=== PATIENT | female | born 1970 | race Caucasian/White ===

== ENCOUNTER 2024-11-15 17:35 | Emergency (ER) | payer MEDICAID, SELFPAY ==
[2024-11-15 17:41] VITALS: BP 115/85; PULSE 96; TEMP 37.3; O2SAT 100; BMI 27.5
--- NOTE | 2024-11-15 17:50 | ED_ITS ---
HPI - URI/Sore Throat General Chief Complaint: Upper Respiratory Infection Stated Complaint: POSS FLU Time Seen by Provider: 11/15/24 17:36 Source: patient History of Present Illness HPI Narrative: Patient is a 54-year-old female who presents to the emergency department requesting flu testing and a chest x-ray for cough and congestion that began yesterday. She reports a fever of 103.0 Fahrenheit yesterday, no medications taken today for her symptoms. She reports green sputum with coughing. She is a half a pack per day cigarette smoker. No vomiting or diarrhea. She reports body aches, nasal congestion. She has not taken any medications prior to arriva l. She states she was reading online and is concerned that she may have influenza A. Related Data Previous Rx's ?Medication ?Instructions ?Recorded jcbyeegmczfkrqr-lnyriszggmgewfq-MP 10 ml PO Q6H PRN cold symptoms 11/15/24 2 mg-30 mg-10 mg/5 mL oral syrup #200 mL (Bromfed DM) methylprednisolone 4 mg tablets in See Rx Instructions .Route 11/15/24 a dose pack (Medrol (Jeremi)) .COMPLEX #21 ea ondansetron 4 mg disintegrating 4 mg PO Q6H PRN nausea and 11/15/24 tablet vomiting #12 tabs Allergies Allergy/AdvReac Type Severity Reaction Status Date / Time penicillin G AdvReac Severe Anaphylaxis Verified 11/15/24 17:41 Review of Systems ROS Constitutional Reports: fever and chills Ears, nose, mouth, and throat Reports: throat pain, nasal discharge and nasal congestion Cardiovascular Denies: chest pain Respiratory Reports: cough, change in phlegm color and chest congestion; Denies: shortness of breath Gastrointestinal Denies: nausea, vomiting or diarrhea Integumentary/Breast Denies: rash Neurological Denies: numbness in extremities or weakness in extremities Hematologic/Lymphatic Denies: easy bruising or easy bleeding PFSH PFSH Social History Little interest or pleasure in doing things: not at all Feeling down, depressed, or hopeless: not at all Exam Narrative Exam Narrative: Gen.: Awake, alert, in no distress Head: Normocephalic, atraumatic ENT: Moist mucous membranes, bilateral TMs clear, no pharyngeal erythema Respiratory: No respiratory distress, lungs clear bilaterally, dry cough noted Cardio: Regular rate and rhythm Extremities: Moves extremities equally Psych: Normal mood and affect Neuro: No focal neuro deficit Skin: Warm, dry, intact Constitutional Vital Signs, click to edit/add: Last Vital Signs Temp 99.1 F 11/15/24 17:41 Pulse 101 H 11/15/24 19:02 Resp 16 11/15/24 19:02 BP 119/78 11/15/24 19:02 Pulse Ox 99 11/15/24 19:02 O2 Del Method Room Air 11/15/24 19:02 Course Vital Signs Vital signs: Vital Signs Temperature 99.1 F 11/15/24 17:41 Pulse Rate 96 H 11/15/24 17:41 Respiratory Rate 18 11/15/24 17:41 Blood Pressure 115/85 11/15/24 17:41 Pulse Oximetry 100 11/15/24 17:41 Oxygen Delivery Method Room Air 11/15/24 17:41 Temperature 99.1 F 11/15/24 17:41 Pulse Rate 101 H 11/15/24 19:02 Respiratory Rate 16 11/15/24 19:02 Blood Pressure 119/78 11/15/24 19:02 Pulse Oximetry 99 11/15/24 19:02 Oxygen Delivery Method Room Air 11/15/24 19:02 MDM - URI/Sore Throat MDM Narrative Medical decision making narrative: Patient is negative for COVID, influenza and chest x-ray shows no evidence of acute cardiopulmonary changes. Patient treated with Decadron in the ER and discharged home on Bromfed-DM, Zofran, Medrol Dosepak. Follow-up with PCP and return to the emergency department if symptoms change or worsen SUPERVISED APC VISIT, PHYSICIAN ATTESTATION: Based on the medical record the care appears appropriate. ? Medical Records Attestation: I reviewed the patient's medical records. Lab Data Attestation: I reviewed the patient's lab results. Labs: Lab Results 11/15/24 Range/Units 17:50 Influenza Type A Ag Negative Influenza Type B Ag Negative SARS-CoV-2 Ag (CV2AG) Negative (NEGATIVE) Imaging Data Chest x-ray: Attestation: I have reviewed the pertinent imaging results. Discharge Plan Discharge Chief Complaint: Upper Respiratory Infection Clinical Impression: Upper respiratory infection Patient Disposition: Home, Self-Care Time of Disposition Decision: 19:11 Condition: Good Prescriptions / Home Meds: New methylprednisolone [Medrol (Jeremi)] 4 mg tablets,dose pack See Rx Instructions .ROUTE .COMPLEX Qty: 21 0RF Rx Instructions: Taper as directed fwnybclaxrphzfn-itbvjfytu-FO [Bromfed DM] 2-30-10 mg/5 mL syrup 10 ml PO Q6H PRN (Reason: cold symptoms) Qty: 200 0RF ondansetron 4 mg tablet,disintegrating 4 mg PO Q6H PRN (Reason: nausea and vomiting) Qty: 12 0RF Print Language: Tamazight Instructions: Upper Respiratory Infection (ED) Referrals: Physician,Non-Staff, MD [Primary Care Provider] - 1 week
[2024-11-15 17:53] VITALS: O2SAT 97
[2024-11-15] MEDS: DEXAMETHASONE SOD PHOS 10 MG/ML VIAL PO (18:01)
[2024-11-15 18:18] LABS: Influenza Virus A Antigen Negative; Influenza Virus B Antigen Negative; Internal Control Within Normal Limits; SARS-CoV-2 Ag NEGATIVE (NEGATIVE)
[2024-11-15 19:02] VITALS: BP 119/78; PULSE 101; O2SAT 99
== END 2024-11-15 19:23 | disposition home or self-care (01) ==
PROVIDERS: Physician Assistant; Emergency Provider Emergency Medicine
DX: J06.9 Acute upper respiratory infection, unspecified (principal); F17.210 Nicotine dependence, cigarettes, uncomplicated
CPT/HCPCS: 71045; 87804; 87811; 99284; J1100

== ENCOUNTER 2025-04-18 15:27 | Emergency (ER) | payer SELFPAY ==
[2025-04-18] VITALS (10 sets, daily range): BP systolic 140–165; BP diastolic 90–98; PULSE 78–88; TEMP 36.8; O2SAT 96–100; BMI 27.5
--- NOTE | 2025-04-18 15:41 | ECG_ITS ---
[facility] Test Date: 2025-04-18 Pat Name: NEREYDA LAZARO Department: Room: - Gender: Female [employer]: : 1970 Requested By: [id number] Order Number: [id number] Reading MD: SANGITA JONES M.D. Measurements Intervals [place] Rate: 85 P: 53 MT: 140 QRS: 49 QRSD: 96 T: 64 QT: 354 QTc: 396 Interpretive Statements 1100 Sinus rhythm 9110 normal ECG No previous ECG available for comparison Electronically Signed On 04-20-2025 7:32:02 EDT by SANGITA JONES M.D.
--- NOTE | 2025-04-18 15:41 | XR_ITS ---
The [address] [address] Patient Name: NEREYDA LAZARO MRN: [id number] date: 1970 Sex: F Assigned Patient Location: ER Current Patient Location: ER Accession/Order Number: [id number] Exam Date: 04/18/2025 16:15 Report Date: 04/18/2025 16:18 At the request of: LATRELL RAIN MD Procedure: XR chest 1V XR chest 1V 04/18/2025 4:01 PM SIGNS AND SYMPTOMS: Hypertension, dizziness PROTOCOL: Frontal radiograph of the chest COMPARISON: 11/15/2024 FINDINGS: The trachea is midline. The heart and mediastinal structures are within normal limits. The lung parenchyma is clear. The bony thorax is intact. Postoperative changes are noted in the right shoulder. XR/XR chest 1V IMPRESSION: No acute cardiopulmonary pathology. Impression dictated by: Moe Tellez M.D. 04/18/2025 4:18 PM Dictation Location: [place] [address] Electronically authenticated by: [id number] Y Date: 04/18/2025 16:18
--- NOTE | 2025-04-18 15:41 | ED.GENADUL1 ---
HPI HPI - General Adult General Chief complaint: Recheck/Abnormal Lab/Rx Stated complaint: HIGH BLOOD PRESSURE DIZZY Time Seen by Provider: 04/18/25 15:31 Source: patient Mode of arrival: Wheelchair History of Present Illness HPI narrative: 54-year-old female presented to the emergency department for chief complaint of elevated blood pressure. She has a history of hypertension but took herself off of her blood pressure medicine and cholesterol medicine about 3 years ago. She has not been to a physician since then. Recently she has been irritable and has had a headache and so she came in to get checked and her blood pressure was found to be elevated at triage. Related Data Previous Rx's ?Medication ?Instructions ?Recorded metoprolol tartrate 25 mg tablet 25 mg PO BID #60 tabs 04/18/25 Allergies Allergy/AdvReac Type Severity Reaction Status Date / Time penicillin G AdvReac Severe Anaphylaxis Verified 11/15/24 17:41 Review of Systems ROS Narrative A ten point review of systems is negative except as noted above. [facility] Medical History (Updated 04/18/25 @ 16:59 by Brown Shaikh MD) TIA (transient ischemic attack) ?G45.9 - Transient cerebral ischemic attack, unspecified (ICD-10) Social History Little interest or pleasure in doing things: not at all Feeling down, depressed, or hopeless: not at all Exam Narrative Exam Narrative: Nurses note and vital signs reviewed and patient is not hypoxic. General: The patient appears well and in no apparent distress. Patient is resting comfortably on cart. Skin: Warm, dry, no pallor noted. There is no rash noted. Head: Normocephalic, atraumatic Eye: Normal conjunctiva, no drainage Ears, Nose, Mouth, and Throat: oral mucosa is moist. Nares patent. Cardiovascular: Regular Rate and Rhythm Respiratory: Patient is in no distress, no accessory muscle use, lungs are clear to auscultation, no wheezing, rales or rhonchi Back: non-tender GI: Soft and nontender Musculoskeletal: The patient has no evidence of calf tenderness, no pitting edema, symmetrical pulses noted bilaterally Neurological: A&O, normal speech Psychiatric: Cooperative Constitutional Vital Signs, click to edit/add: Last Vital Signs Temp 98.3 F 04/18/25 15:32 Pulse 78 04/18/25 16:30 Resp 15 04/18/25 16:30 BP 140/90 04/18/25 16:30 Pulse Ox 96 04/18/25 15:50 O2 Del Method Room Air 04/18/25 15:32 Course Vital Signs Vital signs: Vital Signs Temperature 98.3 F 04/18/25 15:32 Pulse Rate 83 04/18/25 15:32 Respiratory Rate 18 04/18/25 15:32 Blood Pressure 165/98 H 04/18/25 15:32 Pulse Oximetry 99 04/18/25 15:32 Oxygen Delivery Method Room Air 04/18/25 15:32 Temperature 98.3 F 04/18/25 15:32 Pulse Rate 78 04/18/25 16:30 Respiratory Rate 15 04/18/25 16:30 Blood Pressure 140/90 04/18/25 16:30 Pulse Oximetry 96 04/18/25 15:50 Oxygen Delivery Method Room Air 04/18/25 15:32 Medical Decision Making MDM Narrative Medical decision making narrative: The patient's blood pressure is mildly elevated. She has been on metoprolol in the past and was prescribed same. Blood work and EKG showed no acute findings and she is able to be discharged home. Treatment diagnosis and follow-up were discussed with the patient. Differential Diagnosis Differential Diagnosis: Hypertension, renal failure Lab Data Lab results reviewed: Yes I reviewed the patient's lab results Labs: Lab Results 04/18/25 04/18/25 Range/Units 15:34 15:50 WBC 10.1 (4.0-11.0) 10^3/uL RBC 5.18 (4.20-5.40) 10^6/uL Hgb 15.4 (12.0-16.0) g/dL Hct 46.3 (36.0-48.0) % MCV 89.4 (81.0-99.0) fL MCH 29.7 (26.7-34.0) pg MCHC 33.3 (29.9-35.2) g/dL RDW 13.2 (11.0-15.0) % Plt Count 307 (150-450) 10^3/uL MPV 10.8 (9.5-13.5) fL Neut % (Auto) 73.2 (43.0-75.0) % Lymph % (Auto) 20.6 (20.5-60.0) % [facility] % (Auto) 4.3 (1.7-12.0) % Eos % (Auto) 1.1 (0.9-7.0) % Baso % (Auto) 0.5 (0.2-2.0) % Neut # (Auto) 7.4 H (1.4-6.5) 10^3/uL Lymph # (Auto) 2.1 (1.2-3.8) 10^3/uL [facility] # (Auto) 0.4 (0.3-0.8) 10^3/uL Eos # (Auto) 0.1 (0.0-0.7) 10^3/uL Baso # (Auto) 0.1 (0.0-0.1) 10^3/uL Abs Immat Gran (auto) 0.03 (0.00-0.03) 10^3/uL Imm/Tot Granulo (auto) 0.3 (0.0-0.5) % Sodium 139 (136-145) mmol/L Potassium 3.7 (3.5-5.1) mmol/L Chloride 105 (98-107) mmol/L Carbon Dioxide 24.4 (21.0-32.0) mmol/L Anion Gap 13.3 BUN 13.0 (7.0-18.0) mg/dL Creatinine 0.79 (0.55-1.02) mg/dL Est GFR ( Amer) >60 (>=60 mL/min/1.73m^2) Est GFR (Non-Af Amer) >60 (>=60 mL/min/1.73m^2) BUN/Creatinine Ratio 16.5 Glucose 142 H (74-106) mg/dL Calcium 9.6 (8.5-10.1) mg/dL Urine Color Lt. yellow (YELLOW) Urine Clarity Clear (CLEAR) Urine pH 6.0 (5.0-9.0) Ur Specific [place] 1.020 (1.005-1.025) Urine Protein Negative (NEG/TRACE) mg/dL Urine Glucose (UA) Negative (NEGATIVE) mg/dL Urine Ketones Negative (NEGATIVE) mg/dL Urine Occult Blood Trace-i (NEGATIVE) Urine Nitrite Negative (NEGATIVE) Urine Bilirubin Negative (NEGATIVE) Urine Urobilinogen 0.2 (0.2-1.0) EU/dL Ur Leukocyte Esterase Small A (NEGATIVE) Urine RBC 2-5 A (0-2) #/HPF Urine WBC 5-10 A (NONE SEEN) #/HPF Ur Squamous Epith Cells Few A (NONE/RARE) #/LPF Urine Crystals None seen (None Seen) #/HPF Urine Bacteria Small A (NONE SEEN) #/HPF Urine Casts None seen (NONE SEEN) #/LPF Urine Mucus Moderate A (NONE SEEN) Ur Culture Indicated? Yes-[facility] [place] Imaging Data Chest x-ray: Radiologist's impression: ITS Impressions Chest X-Ray 04/18/25 15:41 IMPRESSION: No acute cardiopulmonary pathology. Impression dictated by: Moe Tellez M.D. 04/18/2025 4:18 PM Dictation Location: [employer] Electronically authenticated by: [id number] Y Date: 04/18/2025 16:18 ECG Data Attestation: I personally reviewed and interpreted this ECG as follows: (EKG on my interpretation shows normal sinus rhythm with rate of 85 and no acute change) Discharge Plan Discharge Chief Complaint: Recheck/Abnormal Lab/Rx Clinical Impression: Essential hypertension Patient Disposition: Home, Self-Care Time of Disposition Decision: 16:59 Condition: Good Mode of Transportation: Private Vehicle Prescriptions / Home Meds: New metoprolol tartrate 25 mg tablet 25 mg PO BID Qty: 60 0RF Print Language: Serbian Instructions: Heart Healthy Diet (ED), Low-Sodium Diet (ED), Hypertension (ED) Referrals: Physician,Non-Staff, MD [Primary Care Provider] - 1 week
[2025-04-18 16:03] LABS: Glucose Urine UA NEGATIVE (NEGATIVE)
[2025-04-18 16:10] LABS: Cast Seen? NONE SEEN #/LPF (NONE SEEN); Crystals Seen? None Seen #/HPF (None Seen); Urine Culture Indicated YES-FRMC
[2025-04-18 16:18] LABS: Hematocrit 46.3 % (36.0-48.0); Hemoglobin 15.4 g/dL (12.0-16.0); Immature Granulocytes Abs Auto 0.03 10^3/uL (0.00-0.03); Immature Granulocytes Pct Auto 0.3 % (0.0-0.5); Lymphocytes Absolute Auto 2.1 10^3/uL (1.2-3.8); Mean Corpuscular HGB Conc 33.3 g/dL (29.9-35.2); Mean Corpuscular Hemoglobin 29.7 pg (26.7-34.0); Mean Corpuscular Volume 89.4 fL (81.0-99.0); Platelet Count 307 10^3/uL (150-450); Red Blood Count 5.18 10^6/uL (4.20-5.40); White Blood Count 10.1 10^3/uL (4.0-11.0)
[2025-04-18 16:28] LABS: Anion Gap 13.3; Blood Urea Nitrogen 13.0 mg/dL (7.0-18.0); Calcium 9.6 mg/dL (8.5-10.1); Carbon Dioxide 24.4 mmol/L (21.0-32.0); Chloride 105 mmol/L (98-107); Estimated GFR (African America >60 (>=60 mL/min/1.73m^2); Estimated GFR (Non-African Ame >60 (>=60 mL/min/1.73m^2); Glucose 142 mg/dL (74-106); Potassium 3.7 mmol/L (3.5-5.1); Sodium 139 mmol/L (136-145)
== END 2025-04-18 17:13 | disposition home or self-care (01) ==
PROVIDERS: Emergency Provider Emergency Medicine
DX: I10 Essential (primary) hypertension (principal); R51.9 Headache, unspecified
CPT/HCPCS: 36415; 71045; 80048; 81001; 85025; 87086; 93005; 99285

== ENCOUNTER 2025-07-16 08:11 | Emergency (ER) | payer MEDICAID, SELFPAY ==
--- OUTSIDE RECORDS SUMMARY | 2019-05-31 19:00 | XMS_ITS | Continuity of Care Document ---
Author Organization [facility] Address [address] [place] [address] Phone Care Team Providers Care Equipment Worker Name Role Phone Pavlock DO, Max Unavailable Unavailable Allergies, Adverse Reactions, Alerts Substance Reaction Status Criticality PENICILLIN Active No Information Medications Medication Instructions Dosage Effective Dates (start - stop) Status Comments naltrexone 50 mg tablet take 1 tablet by oral route every day. Do not start until 06/09/19 - Active omeprazole 40 mg capsule,delayed release take 1 capsule by oral route every day before a meal 40 MG - Active sertraline 100 mg tablet take 1 tablet by oral route every day 100 MG - Active metoprolol succinate ER 50 mg tablet,extended release 24 hr take 1 tablet by oral route every day 50 MG - Active ranitidine 150 mg tablet take 1 tablet by oral route 2 times every day - Active Procedures Procedure Date Alcohol and/or drug services- Acute Deto x Alcohol and/or drug services- Acute Deto x No Charge URINE TEST DRUG TEST PRSMV DIR OPT OBS Alcohol and/or drug services- Acute Deto x Alcohol and/or drug services- Acute Deto x Advance Directives Directive Yes / No Effective Date File Name No Information Encounters Encounter Description Practice Location Reason(s) For Visit Diagnoses Date Provider Providers Copied on Encounter [facility], [address], [place], [id number] , [place] tel: [phone] [facility] Opioid dependence with withdrawalAlcohol dependence with withdrawal, uncomplicated Sep-2 0-201 9 [facility] DO Max. [address], [place], [id number] , [place]. tel:[phone] [facility], [address], [place], [id number] , [place] tel: [phone] [facility] Opioid dependence with withdrawalAlcohol dependence with withdrawal, uncomplicated May- 9 [facility]. [address], [place], [id number] , [place]. tel: [phone] [facility], [address], [place], [id number] , [place] tel: [phone] [facility] percocet and alcohol dependence (chief complaint) Opioid dependence with withdrawalAlcohol dependence with withdrawal, uncomplicated May- 9 Elie Carrizales. [address] [place] [address], [id number] , [place]. tel: [phone] [facility], [address] [place] [address], [id number] , [place] tel: [phone] [facility] Opioid dependence with withdrawal 9 [facility]. [address], [place], [id number] , [place]. tel: [phone] [facility], [address] [place] [address], [id number] , [place] tel: [phone] [facility] Opioid dependence with withdrawalEncounter for test, result negative 9 [facility]. [address], [place], [id number] , [place]. tel: [phone] Family History Family Member Type Diagnosis Age At Onset Father Problem (finding) Cardiovascular disease Mother Problem (finding) Diabetes mellitus Mother Problem (finding) Cardiovascular disease Payers Payer name Insurance type Covered green party ID Alisa souza(s) Adam [id number] Social History Type Description Quantity Date Captured Comments Sex Female Smoking Status No Information Sexual Orientation Straight or heterosexual Gender Identity Female Vital Signs Date / Time: Height Weight BMI Pulse Rate Blood Pressure Temperature Respiratory Rate Body Surface Area Head Circumference Head Circ. Percentile Wt./Ramiro. Percentile BMI percentile Pulse Ox Inhaled Ox 9:08 AM 48 /min 164/82 mm[Hg] 97.90 F 100 % Chief Complaint And Reason For Visit No Information Reason For Referral Reason For Referral No Information History Of Present Illness Encounter Date Complaint History Of Prese nt Illness percocet and alcohol dependence 48 year old female checked in to detox and reports last using perc 15's and alcohol 2 days ago. She typically uses 6 perc 15's/day along with 75 oz of hard lemonade. She has been using opiates for 15 years and drinking heavy for 6 months. This is her first detox.surgical hx- plates in R arm, skin graft in R arm, hysterectomy, tubalallergies- penicillinmeds- ranitidine, sertraline, metoprolol, omeprazoletobacco- 1 ppdplans upon completing detox- 30 day inpatient. Functional Status Date Functional Assessmen t No Information Instructions Date Instruction Additional Infor mation No Information Assessments Type Assessment Date assessment Opioid dependence with withdrawa l assessment Alcohol dependence with withdraw al, uncomplicated Patient Care Teams Name Effective Dates (start - stop) Status Members No Information
[2025-07-16 08:19] VITALS: BP 145/95; PULSE 82; TEMP 36.6; O2SAT 99; BMI 59.4
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
--- OUTSIDE RECORDS SUMMARY | 2025-07-16 08:50 | XMS_ITS | Clinical Summary ---
Author Organization [employer] tem Address [id number] [address] [place] [address] Care Team Providers Care Program Therapist Name Role Phone Mercedez Ramos MICROCOMPUTER TECHNICIAN-STILL OPERATOR GIN Primary Care Provi juan ramon Allergies Active AllergyReactionsCriticalityNoted EkbmApjxehusXkezojeujdw40/28/2017 Medications MedicationSigDispense QuantityRefillsLast FilledStart DateEnd DateStatus albuterol (VENTOLIN HFA) 90 mcg/actuation inhaler Indications:CoughInhale 2 puffs every 6 (six) hours as needed for wheezing. 18 g ctive ibuprofen (MOTRIN) 800 mg tablet Indications:Lumbar strain, initial encounterTake 1 tablet (800 mg total) by mouth every 8 (eight) hours as needed for pain. 60 tablet ctive Active Problems ProblemNoted DateDiagnosed DateChest pain02/14/2023ecal ghucox4602/14/2023 Suprapubic abdominal pain10/26/2022Hx of diverticulitis of colon10/26/2022 [address] nodules on [address]06/02/2022ell's palsy06/02/2022urn erythema of right lower leg, initial fczehgdzs37/05/2022Gastroesophageal reflux disease without fcjodiwcblm28/26/2022hronic jmqzsnj7310/07/2021High zuwkinnayce17/26/2022 Anxiety and /26/2022Tobacco use10/07/2021rimary hypertension 10/07/2021 Resolved Problems ProblemNoted DateDiagnosed DateResolved YmrpGqqleggkj81cute left ankle painoughLumbar strain, initial tcakpfiuv50 Immunizations ImmunizationAdministration DatesNext DueInfluenza, Injectable, quadrivalent (PF) 10/07/2021Tdap11/02/2017 Family History Medical HistoryRelationNameCommentsHeart diseaseFatherDiabetesMotherHypertension MotherStrokeMotherEpilepsySon 1thomasNo Known ProblemsSon 2No Known ProblemsSon 3RelationNameStatusCommentsFatherDeceasedMotherAliveSon 1thomasAliveSon 2Alive Son 3Alive Social History Tobacco UseTypesPacks/DayYears UsedDateSmoking Tobacco: Every UywVxskjkuros274 Smokeless Tobacco: Never Tobacco Cessation:Ready to Q uit: Not Asked; Counseling Given: Not Answered Comments:recently 1/2 pack Alcohol UseStandard Drinks/WeekCommentsYes0 (1 standard drink = 0.6 oz pure alcohol)2 Jesús's Hard Lemondae 3x per weekSocial Connection and Isolation Panel AnswerDate RecordedIn a typical week, how many times do you talk on the phone with family, friends, or neighbors?More than three times a week10/25/2021How often do you get together with friends or relatives?Twice a week10/25/2021How often do you attend yarsani or catholic services?Never2Do you belong to any clubs or organizations such as yarsani groups, unions, fraternal or athletic groups, or school groups?No10/25/2021How often do you attend meetings of the clubs or organizations you belong to?Never10/25/2021re you , , , , never , or living with a partner?Kmszcjj0110/25/2021 AUDIT-CAnswerDate RecordedQ1: How often do you have a drink containing alcohol? 2-3 times a week10/25/2021Q2: How many drinks containing alcohol do you have on a typical day when you are drinking?1 or Q3: How often do you have six or more drinks on one occasion?Never10/25/2021verall Financial Resource Strain (CARDIA)AnswerDate RecordedHow hard is it for you to pay for the very basics like food, housing, medical care, and heating?Hard10/25/2021HQ-2Answer Date RecordedTotal Shcpu006[facility] Occupational Health - Occupational Stress QuestionnaireAnswerDate RecordedDo you feel stress - tense, restless, nervous, or anxious, or unable to sleep at night because yourmind is troubled all the time - these days?Very much10/25/2021Exercise Vital SignAnswer Date RecordedOn average, how many days per week do you engage in moderate to strenuous exercise (like a brisk walk)?0 days10/25/2021n average, how many minutes do you engage in exercise at this level?0 min10/25/2021RAPARE - TransportationAnswerDate RecordedIn the past 12 months, has lack of transportation kept you from medical appointments or from getting medications?No 10/25/2021In the past 12 months, has lack of transportation kept you from meetings, work, or from getting things needed for daily living?No10/25/2021 ChildcareAnswerDate RecordedDo problems getting early childhood teacher make it difficult for you to work or study?No10/25/2021EmploymentAnswerDate RecordedDo you need help finding a local career center and/or a training program?Yes10/25/2021Hunger ScreeningAnswerDate RecordedWithin the past 12 months we worried whether our food would run out before we got money to buy more.Never True07/13/2024Within the past 12 months the food we bought just didn't last and we didn't have money to get more.Never True07/13/2024urpose - LifeAnswerDate RecordedI have a purpose and direction in my life.Somewhat Agree10/25/2021EducationAnswerDate RecordedWhat is the highest level of school you have completed or the highest degree you have received?12th grade10/25/2021CommentsNoSex and Gender InformationValueDate RecordedSex Assigned at BirthNot on fileLegal SexFemale 04/15/2015 4:08 PM EDTGender IdentityNot on fileSexual OrientationNot on file Last Filed Vital Signs Vital SignReadingTime TakenCommentsBlood Pvcwvble338/1348807/13/2024 5:15 AM EDT Kdptf771807/13/2024 5:23 AM YJDZwhyymgqhef99.1 ??C (98.8 ??F)07/13/2024 5:23 AM EDTRespiratory Dhdr176007/13/2024 5:23 AM EDTOxygen Tyidaydmij342%07/13/2024 5:23 AM EDTInhaled Oxygen Concentration--Pyxnvk93.6 kg (160 lb)07/13/2024 3:26 AM EDT Ydinig828.6 cm (5' 4 )07/13/2024 3:26 AM EDTBody Mass Index27.4607/13/2024 3:26 AM EDT Plan of Treatment Health MaintenanceDue DateLast DoneCommentsTobacco Vqkjwacjnm1972Zoster (Shingles) Vaccine (1 of 2)2Depression Eagxlilep08/14// COVID-19 Vaccine (2 - season)/Influenza Vaccine /, 10/07/2021, 08/14/2018, Additional history existsAdult BMI Mtnbsgjup19/09/2023Tobacco Ybfwvcdsa07/4DTaP,Tdap and Td Vaccines (2 - Td or Tdap)Colonoscopy, 03/02/2018 Medical Devices Not on file Procedures Procedure NamePriorityDate/TimeAssociated DiagnosisCommentsPROVATION COLONOSCOPY Eggnjeu3003/02/2018 9:30 AM EDT from Last 3 Months or Most Recently Relevant to Health Maintenance Results * ES colonoscopy imaging (03/02/2018 9:30 AM EDT)Specimen (Source)Anatomical Location / LateralityCollection Method / VolumeCollection TimeReceived Time Narrative SYSTEMGENERATED, DOCUMENTATION - 03/02/2018 9:30 AM EDT This order has been auto-finalized for image and report archival. *See procedures tab in Epic or report included with PACS images for full interpretation.* Authorizing ProviderResult TypeResult StatusMichael E Grillis DOIMG OR IMG ORDERABLESFinal Result from Last 3 Months or Most Recently Relevant to Health Maintenance Insurance * Guarantor: Funmi Fuentes TypeRelation to PatientDate of BirthPhone Billing AddressPersonal/LryqzoPywi1970 [address] [place] [address] Care Teams Team MemberRelationshipSpecialtyStart DateEnd Date Mercedez Ramos, MICROCOMPUTER TECHNICIAN-STILL OPERATOR GIN [address], [place] [address] PCP - GeneralFamily Medicine03/23/24
--- NOTE | 2025-07-16 08:55 | XR_ITS ---
The [address] [address] Patient Name: NEREYDA LAZARO MRN: [facility]:[id number] date: 1970 Sex: F Assigned Patient Location: ED.MAIN Current Patient Location: ED.MAIN Accession/Order Number: [id number] Exam Date: 07/16/2025 08:45 Report Date: 07/16/2025 09:46 At the request of: EDWIN LATHAM DO Procedure: XR knee RT 3V CLINICAL HISTORY: Left rib and medial right knee pain following falls PA CHEST WITH LEFT RIBS: COMPARISON: 04/18/2025 The chest film shows minor left basilar atelectasis or scarring. No additional consolidation, effusion or pneumothorax is seen. The cardiac, hilar and mediastinal silhouettes are within normal limits. No vascular congestion is seen. The bony structures are osteopenic. There is a plate and screws along the proximal right humerus. Reverse S-shaped thoracolumbar scoliotic curvature is noted. AP and both oblique views of the left ribs show potential minimally displaced fractures of the anterior aspect of the seventh, ninth and possibly eighth ribs. No other definite acute displaced fractures or bony destruction are seen. XR/XR ribs LT min 3V w CXR1V IMPRESSION: NO ACUTE CARDIOPULMONARY FINDINGS. OSTEOPENIA WITH SUSPECTED ANTERIOR LEFT RIB FRACTURES. CORRELATION IS RECOMMENDED AT THE SITE OF PATIENT'S PAIN. RIGHT KNEE - 3 views COMPARISON: None AP, lateral and internal oblique views were obtained. There is osteopenia. No acute fracture or dislocation is identified. There is mild narrowing at the medial tibiofemoral joint compartment. Minor squaring off of the articular margins is noted. There is a trace amount joint fluid. No soft tissue swelling is seen. IMPRESSION: NO ACUTE BONY INJURY. Impression dictated by: Ani Kwok M.D. 07/16/2025 9:46 AM Dictation Location: [place] [address] Electronically authenticated by: [id number] Y Date: 07/16/2025 09:46
--- NOTE | 2025-07-16 08:55 | XR_ITS ---
The [address] [address] Patient Name: NEREYDA LAZARO MRN: [facility]:[id number] date: 1970 Sex: F Assigned Patient Location: ED.MAIN Current Patient Location: ED.MAIN Accession/Order Number: [id number] Exam Date: 07/16/2025 08:45 Report Date: 07/16/2025 09:46 At the request of: EDWIN LATHAM DO Procedure: XR knee RT 3V CLINICAL HISTORY: Left rib and medial right knee pain following falls PA CHEST WITH LEFT RIBS: COMPARISON: 04/18/2025 The chest film shows minor left basilar atelectasis or scarring. No additional consolidation, effusion or pneumothorax is seen. The cardiac, hilar and mediastinal silhouettes are within normal limits. No vascular congestion is seen. The bony structures are osteopenic. There is a plate and screws along the proximal right humerus. Reverse S-shaped thoracolumbar scoliotic curvature is noted. AP and both oblique views of the left ribs show potential minimally displaced fractures of the anterior aspect of the seventh, ninth and possibly eighth ribs. No other definite acute displaced fractures or bony destruction are seen. XR/XR knee RT 3V IMPRESSION: NO ACUTE CARDIOPULMONARY FINDINGS. OSTEOPENIA WITH SUSPECTED ANTERIOR LEFT RIB FRACTURES. CORRELATION IS RECOMMENDED AT THE SITE OF PATIENT'S PAIN. RIGHT KNEE - 3 views COMPARISON: None AP, lateral and internal oblique views were obtained. There is osteopenia. No acute fracture or dislocation is identified. There is mild narrowing at the medial tibiofemoral joint compartment. Minor squaring off of the articular margins is noted. There is a trace amount joint fluid. No soft tissue swelling is seen. IMPRESSION: NO ACUTE BONY INJURY. Impression dictated by: Ani Kwok M.D. 07/16/2025 9:46 AM Dictation Location: [place] [address] Electronically authenticated by: [id number] Y Date: 07/16/2025 09:46
== END 2025-07-16 10:29 | disposition home or self-care (01) ==
PROVIDERS: Emergency Provider Emergency Medicine
DX: S22.42XA Multiple fractures of ribs, left side, initial encounter for closed fracture (principal); I10 Essential (primary) hypertension; W18.39XA Other fall on same level, initial encounter; S83.91XA Sprain of unspecified site of right knee, initial encounter
CPT/HCPCS: 71101; 73562; 94667; 99283